=== PATIENT | male | born 1995 | race Caucasian/White ===

== ENCOUNTER 2018-02-03 22:43 | Emergency (ER) | payer BC ==
[~2018-02-03] VITALS: Ht 182.9 cm; Wt 74.5 kg
[2018-02-03 23:16] LABS: HEMATOCRIT 43.1 % (38.0-50.0); HEMOGLOBIN 15.4 G/DL (12.5-16.6); MCHC 35.7 G/DL (30.0-36.0); MCV 86.9 FL (86-99); PLATELET COUNT 156 K/uL (156-360); RBC DIS.WIDTH-CV 11.5 % (11.8-14.6); RBC DIS.WIDTH-SD 36.8 % (39-53); RED BLOOD COUNT 4.96 M/uL (4.00-5.50); WHITE BLOOD COUNT 5.7 K/uL (4.1-10.2)
[2018-02-03 23:27] LABS: ALBUMIN 4.7 g/dL (3.2-4.8); CHLORIDE 101 mEq/L (99-109); POTASSIUM 3.5 mEq/L (3.7-5.4); SODIUM 136 mEq/L (136-147)
[2018-02-03 23:29] LABS: GLUCOSE 98 mg/dL (70-99); TOTAL PROTEIN 7.7 g/dL (6.4-8.3)
[2018-02-03 23:31] LABS: TOTAL BILIRUBIN 0.6 mg/dL (0.0-1.0)
[2018-02-03 23:33] LABS: ALKALINE PHOSPHATASE 61 IU/L (3-129); CREATININE 1.1 mg/dL (0.6-1.3); GFR ESTIMATE (CALCULATED) > 59 mL/min/ (58.99-99999)
[2018-02-03 23:34] LABS: UREA NITROGEN (BUN) 12 mg/dL (9-23)
[2018-02-03 23:35] LABS: AST (GOT) 15 IU/L (2-34)
[2018-02-03 23:36] LABS: ALT (GPT) 11 IU/L (3-49)
[2018-02-04 01:30] VITALS: BP 128/86
== END 2018-02-04 01:30 | disposition home or self-care (01) ==
LOC: EME 22:43 → RME 22:43
DX: R19.7 Diarrhea, unspecified (principal); R11.0 Nausea
CPT/HCPCS: 80053; 85027; 87177; 87506; 99281; 99284